=== PATIENT | female | born 1975 | race Caucasian/White ===

== ENCOUNTER 2017-05-16 17:04 | Inpatient (IN) | payer BC ==
--- NOTE | 2017-05-16 17:32 | PDOC ---
Rapid Medical Evaluation Time Seen by Provider: 05/16/17 17:28 Medical Evaluation: 05/16/17 17:29 Pt with c/o: ruptured left ovarian a few weeks ago now with possible abscess . Sent by Olga for preop clearance Pt on brief exam: vss, Pt ordered for: preop labs collected # 18 gauge to lt ac Pt to proceed to the ED 05/16/17 17:44 Discharge Disposition - Diagnosis Ovarian abscess - Referrals - Patient Instructions - Post Discharge Activity
[2017-05-16 17:33] VITALS: BMI 21.1
[2017-05-16 18:05] LABS: BASO % 2.2 % (0-2.0); EOS % 2.1 % (0-4.5); HEMATOCRIT 39.4 % (32.4-45.2); HEMOGLOBIN 13.2 GM/dL (10.7-15.3); LYMPH % 27.8 % (8-40); MCH 31.9 pg (25.7-33.7); MCHC 33.6 g/dl (32.0-36.0); MEAN CELL VOLUME 94.9 fl (80-96); MEAN PLT VOLUME 7.7 fl (7.5-11.1); MONO % 4.1 % (3.8-10.2); NEUT % 63.8 % (42.8-82.8); PLATELET COUNT 363 K/MM3 (134-434); RBC 4.15 M/mm3 (3.60-5.2); WHITE BLOOD COUNT 8.4 K/mm3 (4.0-10.0)
--- NOTE | 2017-05-16 18:06 | PDOC ---
History of Present Illness - General Chief Complaint: Pain, Acute Stated Complaint: PAIN Time Seen by Provider: 05/16/17 17:28 History Source: Patient Exam Limitations: No Limitations - History of Present Illness Initial Comments: CHIEF COMPLAINT: 41 y/o female here for laparoscopy by Dr. Ocampo at 7pm. HISTORY OF PRESENT ILLNESS: The patient had a ruptured ovarian cyst 2 weeks ago which has been monitored. There is still blood in her abdomen and Dr. Ocampo sent her to the ER for pre-op labs for a laparoscopy tonight. The patient denies f/c, n/v/d, CP, SOB, back pain. Vital signs on arrival are within normal limits. REVIEW OF SYSTEMS: GENERAL/CONSTITUTIONAL: No fever/chills. No weakness. No weight change. HEAD, EYES, EARS, NOSE AND THROAT: No change in vision. No ear pain or discharge. No sore throat. CARDIOVASCULAR: No chest pain or shortness of breath. RESPIRATORY: No cough, wheezing, or hemoptysis. GASTROINTESTINAL: +abdominal pain and heavy vaginal bleeding. GENITOURINARY: No dysuria, frequency, or change in urination. MUSCULOSKELETAL: No joint or muscle swelling or pain. No neck or back pain. SKIN: No rash or easy bruising. NEUROLOGIC: No headache, vertigo, loss of consciousness, or loss of sensation. PHYSICAL EXAM: GENERAL: The patient is awake, alert, and fully oriented, in no acute distress. HEAD: Normal with no signs of trauma. EYES: Pupils equal, round and reactive to light, extraocular movements intact, sclera anicteric, conjunctiva clear. EXTREMITIES: Normal range of motion, no edema. NEUROLOGICAL: Normal speech, normal gait. SKIN: Warm, Dry, normal turgor, no rashes or lesions noted. Past History - Past Medical History Allergies/Adverse Reactions: Allergies Allergy/AdvReac Type Severity Reaction Status Date / Time No Known Allergies Allergy Verified 05/16/17 17:29 COPD: No DVT: No - Immunization History Immunization Up to Date: Yes - Suicide/Smoking/Psychosocial Hx Smoking History: Never smoked Information on smoking cessation initiated: No Hx Alcohol Use: No Drug/Substance Use Hx: No Substance Use Type: None *Physical Exam - Vital Signs Last Vital Signs Temp Pulse Resp BP Pulse Ox 98.7 F 78 17 141/71 100 05/16/17 17:30 05/16/17 17:30 05/16/17 17:30 05/16/17 17:30 05/16/17 17:30 ED Treatment Course - LABORATORY CBC & Chemistry Diagram: 05/16/17 17:43 Medical Decision Making - Medical Decision Making A/P: 41 y/o female in the ER for pre-op labs to be sent for laparoscopy at 7pm. Labs drawn in RME. Patient admitted to Dr. Ocampo. *DC/Admit/Observation/Transfer Diagnosis at time of Disposition: Ovarian abscess - Discharge Dispostion Condition at time of disposition: Stable Admit: Yes - Referrals - Patient Instructions - Post Discharge Activity
[2017-05-16 18:17] LABS: INR 1.04 (0.82-1.09); PROTHROMBIN TIME (PATIENT) 11.7 SEC (9.98-11.88)
[2017-05-16 18:37] LABS: URINE APPEARANCE SLCLOUDY; URINE BILIRUBIN NEGATIVE (NEGATIVE); URINE BLOOD NEGATIVE (NEGATIVE); URINE COLOR YELLOW; URINE GLUCOSE (UA) NEGATIVE (NEGATIVE); URINE KETONE TRACE (NEGATIVE); URINE LEUK ESTERASE NEGATIVE (NEGATIVE); URINE NITRITE NEGATIVE (NEGATIVE); URINE PROTEIN NEGATIVE (NEGATIVE); URINE UROBILINOGEN NEGATIVE mg/dL (0.2-1.0)
[2017-05-16] MEDS ORDERED: MIDAZOLAM HCL 2 MG/2 ML SINGLE DOSE VIAL ONE (19:17)
[2017-05-16] MEDS ORDERED: PROPOFOL 20 ML ONE ×2 (19:17→20:29)
[2017-05-16] MEDS ORDERED: ROCURONIUM BROMIDE 50 MG/5 ML VIAL ONE (19:17)
[2017-05-16] MEDS ORDERED: ceFAZolin SODIUM 1 GM VIAL IVPB ONE (19:48)
[2017-05-16] MEDS ORDERED: ceFAZolin SODIUM 1 GM VIAL ONE (20:37)
[2017-05-16] MEDS ORDERED: DEXAMETHASONE SOD PHOSPHATE 4 MG/1 ML VIAL ONE (20:37)
[2017-05-16] MEDS ORDERED: GLYCOPYRROLATE 0.2 MG/1 ML VIAL ONE (20:37)
[2017-05-16] MEDS ORDERED: ONDANSETRON 4 MG/2 ML VIAL ONE ×2 (20:37)
[2017-05-16] MEDS ORDERED: NEOSTIGMINE METHYLSULFATE 0.5 MG/ML - 10 ML MDV ONE (20:38)
[2017-05-16] MEDS ORDERED: BUPIVACAINE HCL/PF 0.5% (5MG/ML) 10 ML VIAL IJ ONE (20:45)
[2017-05-16] MEDS ORDERED: BUPIVACAINE HCL/PF 0.5% (5MG/ML) 10 ML VIAL ONE (20:48)
[2017-05-16] MEDS ORDERED: LACTATED RINGERS SOLUTION 1,000 ML IV SCH ×2 (21:15→21:30)
[2017-05-16] MEDS: HYDROmorphone HCL CARPU-JECT 2 MG/1 ML DISP.SYRIN ONE ×2 (21:15→21:30)
[2017-05-16] MEDS ORDERED: IBUPROFEN 800 MG/8 ML IJ IVPB PRN (21:15)
--- NOTE | 2017-05-16 21:15 | HP ---
History & Physical Update - History History: No Change - Physical Physical: No Change - Assessment Assessment: No Change - Plan Plan: No Change
[2017-05-16] MEDS ORDERED: ACETAMINOPHEN INJECTION 100 ML IVPB ONE (21:16)
[2017-05-16] MEDS: ACETAMINOPHEN 1000 MG/100 ML VIAL (NON FORMULARY) IVPB ONE (21:20)
[2017-05-16] MEDS ORDERED: PROMETHAZINE HCL 25 MG/1 ML VIAL IVPB PRN (21:23)
[2017-05-16] MEDS ORDERED: ONDANSETRON 4 MG/2 ML VIAL IVPUSH PRN (21:23)
[2017-05-16] MEDS ORDERED: HYDROmorphone HCL CARPU-JECT 2 MG/1 ML DISP.SYRIN IVPUSH PRN (21:23)
--- NOTE | 2017-05-16 21:23 | OP ---
Operative Note - Note: Operative Date: 05/16/17 Pre-Operative Diagnosis: Pelvic Pain. Culde Sac mass. Hemoperitoneum. Ovarian cyst Operation: Laparoscopic culdesac mass removal. bilateral laparoscopic salpingectomy. left paraovarian cystectomy Findings: 8-9 cm culde sac mass removed paraovarian cyst removed fallopian tubes normal Post-Operative Diagnosis: Same as Pre-op Surgeon: Katja Ocampo Manager Export: Kari Jaramillo Anesthesia: General Estimated Blood Loss (mls): 10 Operative Report Dictated: Yes
[2017-05-16] MEDS ORDERED: LACTATED RINGERS SOLUTION 1,000 ML/1,000 ML INFUS.BAG IV SCH (21:30)
[2017-05-16] MEDS ORDERED: oxyCODONE HCL 5 MG TABLET PO PRN (21:34)
[2017-05-16] MEDS ORDERED: ACETAMINOPHEN 325 MG TABLET (FP) PO PRN (21:34)
[2017-05-17] MEDS: ACETAMINOPHEN 1000 MG/100 ML VIAL (NON FORMULARY) IVPB ONE (01:29)
--- NOTE | 2017-05-17 07:07 | OP ---
DATE OF OPERATION: 05/16/2017 PREOPERATIVE DIAGNOSES: Pelvic pain, cul-de-sac mass and ovarian cyst and dyspareunia. OPERATION: Laparoscopic bilateral salpingectomy, laparoscopic cul-de-sac mass removal and ovarian cystectomy. SURGEON: Katja Ocampo MD STORM SASH MAKER: Kari Jaramillo MD. ANESTHESIOLOGIST: . ANESTHESIA: General. FINDINGS: Large 8- to 9-cm cul-de-sac mass seen. The mass was firmly applied to the cul-de-sac. Tubes were normal and left ovary ovarian cyst. PROCEDURE: Patient was taken to the operating room, placed in the dorsal lithotomy position, prepped and draped in the usual sterile fashion. Timeout was performed in accordance with the hospital regulation. Todd catheter was inserted into the bladder. Attention was then drawn to the umbilicus where a 5-mm umbilical incision was made. Veress needle was inserted into the cavity. Approximately 3 to 4 L of CO2 was insufflated into the cavity. Veress needle was then removed and a 5-mm trocar was inserted. Laparoscope and camera attached. Visualization revealed about a 9-cm cul-de-sac mass which was firmly affixed to the cul-de-sac, also left paraovarian cyst and ovarian cyst which appeared to possibly have ruptured from the left ovary. Tubes were normal. Two lower 5-mm incisions were made with the scalpel on the left and the right side. Trocars were inserted under direct visualization. Grasper and LigaSure were then attached. The left tube fimbriated end was grasped and coagulation and cutting of the fimbriated end. Proximal end of the tube was grasped and LigaSure was then used to coagulate and cut the proximal end of the tube. Same procedure was repeated on the right side. A paraovarian cyst was then removed. The left ovary was noted to have a possible ruptured cyst and a large amount of clotting and tissue were firmly affixed to the cul-de-sac. Large amounts of blood and possibly cyst wall were removed from the cul-de-sac. An 11-mm trocar was placed on the left side and EndoCatch was then inserted. A large amount of tissue and clots were removed from the cul-de-sac. Some tissue had to be left behind due to firmly affixed to the cul-de-sac. The left ovary was noted to be normal. Liver was noted to be normal. No blood was seen by the liver. Upon entry, there was blood in the cul-de-sac as well as anterior to the bladder. Lots of irrigation and suctioning were done and most of the material was removed from the cul-de-sac. There was still material left again that was firmly affixed. After hemostasis had been established, CO2 was removed from the abdomen. All instruments then removed. Incisions were then closed using 4-0 Biosyn suture in subcuticular fashion. Wound was washed and dressed. Steri-Strips placed. Band-Aids were placed on the incision. Todd catheter was then removed. Patient tolerated procedure well. Estimated blood loss was 10 mL. KATJA OCAMPO M.D. [id number]
--- NOTE | 2017-05-17 08:11 | EKG ---
Test Reason : Blood Pressure : / mmHG Vent. Rate : 078 BPM Atrial Rate : 078 BPM P-R Int : 146 ms QRS Dur : 092 ms QT Int : 350 ms P-R-T Axes : 063 020 042 degrees QTc Int : 399 ms NORMAL SINUS RHYTHM NORMAL ECG NO PREVIOUS ECGS AVAILABLE Confirmed by KELLEE MANCUSO, TIMUR ([id number]) on 05/17/2017 8:11:19 AM Referred By: Confirmed By:TIMUR GOODSON MD
[2017-05-17 11:16] VITALS: BP 120/64; PULSE 77; TEMP 98.7
--- NOTE | 2017-05-22 14:44 | PATH ---
Surgical Pathology Report Patient Name: RAY BEAVERS [facility]. Rec. #: [id number] /Age/Gender: 1975 (Age: 41) / F Account: [id number] Location: [facility] OBS/GENERAL STUDIES PROGRAM CHAIR Taken: 05/16/2017 Received: 05/17/2017 Reported: 05/22/2017 Physicians: Katja Ocampo M.D. Specimen(s) Received CUL DE SAC, PELVIC MASS AND FALLOPIAN TUBE Clinical History Ovarian cyst Final Diagnosis CUL-DE-SAC MASS WITH FALLOPIAN TUBES, EXCISION: FIMBRIATED PORTIONS OF BENIGN BILATERAL FALLOPIAN TUBES, AND BENIGN HEMORRHAGIC CYSTIC MASS. NO CARCINOMA IDENTIFIED. Comment: Recommend correlation with clinical findings and follow up as clinically indicated. Electronically Signed Silvino Warner M.D. Gross Description Received in formalin labeled "cul-de-sac mass and pelvic mass and fallopian tubes," is a 9.0 x 8.0 x 2.0 cm aggregate of sandoval brown, hemorrhagic soft tissue fragments admixed with blood clot. There are 2 fimbriated fallopian tubes identified measuring 1.5 and 3.5 cm in length. The longer fallopian tube displays focal paratubal cysts, measuring up to 1.0 cm in greatest dimension. The cut surface of the fallopian tubes reveals unremarkable lumen. Sectioning of the remaining soft tissue reveals hemorrhagic, necrotic fragments. Latex Foam Worker sections are submitted in 8 cassettes as follows: 1-shorter fallopian tube fimbria; 2-cross sections of shorter fallopian tube; 3-longer fallopian tube fimbria; 4-cross sections of longer fallopian tube; 4-9-bhttlfsglybrkp hemorrhagic fragments. /05/17/2017 saudi05/17/2017
== END 2017-05-17 08:45 | disposition home or self-care (01) | DRG 742 ==
LOC: JER 17:04 → JERBED 18:06 → J3W 22:29
PROVIDERS: ADMIT Obstetrics & Gynecology; ATTEND Obstetrics & Gynecology
PROC: 0UB14ZZ Excision of Left Ovary, Percutaneous Endoscopic Approach (ICD-10-PCS; 2017-05-16)
PROC: 0UB94ZX Excision of Uterus, Percutaneous Endoscopic Approach, Diagnostic (ICD-10-PCS; 2017-05-16)
PROC: 0UT74ZZ Resection of Bilateral Fallopian Tubes, Percutaneous Endoscopic Approach (ICD-10-PCS; principal; 2017-05-16 20:00)
DX: N83.202 Unspecified ovarian cyst, left side (principal); K66.1 Hemoperitoneum; N85.8 Other specified noninflammatory disorders of uterus
CPT/HCPCS: 36415; 81003; 84703; 85025; 85610; 86850; 86900; 86901; 88305-TC; 93005; 93010; 94760; 99284-25

== ENCOUNTER 2019-01-03 07:32 | Emergency (ER) | payer BC, OTHER ==
[2019-01-03 07:46] VITALS: BP 110/73; PULSE 73; TEMP 98.2; BMI 21.1
[2019-01-03 08:49] LABS: BASO % 1.3 % (0-2.0); EOS % 4.1 % (0-4.5); HEMATOCRIT 38.7 % (32.4-45.2); HEMOGLOBIN 13.5 GM/dL (10.7-15.3); LYMPH % 30.8 % (8-40); MCH 33.1 pg (25.7-33.7); MEAN CELL VOLUME 94.7 fl (80-96); MEAN PLT VOLUME 7.5 fl (7.5-11.1); MONO % 5.7 % (3.8-10.2); NEUT % 58.1 % (42.8-82.8); PLATELET COUNT 322 K/MM3 (134-434); RBC 4.09 M/mm3 (3.60-5.2); RDW 12.5 % (11.6-15.6); WHITE BLOOD COUNT 5.1 K/mm3 (4.0-10.0)
--- NOTE | 2019-01-03 09:07 | PDOC ---
History of Present Illness - General Chief Complaint: Pain Stated Complaint: ABDOMINAL PAIN Time Seen by Provider: 01/03/19 07:57 History Source: Patient Exam Limitations: No Limitations Past History - Past Medical History Allergies/Adverse Reactions: Allergies Allergy/AdvReac Type Severity Reaction Status Date / Time No Known Allergies Allergy Verified 01/03/19 07:42 Home Medications: Ambulatory Orders Oxycodone HCl/Acetaminophen [Percocet 5-325 mg Tablet] 1 - 2 tab PO Q6H #20 tab MDD 6 05/17/17 COPD: No DVT: No Psychiatric Problems: Yes (ADHD) - Immunization History Immunization Up to Date: Yes - Suicide/Smoking/Psychosocial Hx Smoking History: Never smoked Information on smoking cessation initiated: No Hx Alcohol Use: No Drug/Substance Use Hx: No Substance Use Type: None *Physical Exam - Vital Signs Last Vital Signs Temp Pulse Resp BP Pulse Ox 98.2 F 73 16 110/73 100 01/03/19 07:42 01/03/19 07:42 01/03/19 07:42 01/03/19 07:42 01/03/19 07:42 - Physical Exam General Appearance: No: Apparent Distress Respiratory/Chest: positive: Lungs Clear, Normal Breath Sounds. negative: Respiratory Distress Cardiovascular: positive: Regular Rhythm, Regular Rate, S1, S2. negative: Murmur Female Pelvic Exam: positive: adnexal tenderness (along R side) Gastrointestinal/Abdominal: positive: Tender (RLQ), Soft. negative: Distended, Guarding, Rebound Neurologic: positive: Alert, Normal Mood/Affect ED Treatment Course - LABORATORY CBC & Chemistry Diagram: 01/03/19 08:33 01/03/19 08:33 - ADDITIONAL ORDERS Additional order review: Laboratory Results 01/03/19 08:30 Urine HCG, Qual Negative 01/03/19 08:33 RBC 4.09 MCV 94.7 MCHC 35.0 RDW 12.5 MPV 7.5 Neutrophils % 58.1 Lymphocytes % 30.8 Monocytes % 5.7 Eosinophils % 4.1 D Basophils % 1.3 Medical Decision Making - Medical Decision Making 43 y/o F hx of B/L salpingectomy and L paraovarian cystectomy 05/16/17 was sent to ED by her wine consultant, Dr. Ocampo, to take to possible OR for R ovarian hemorrhagic cyst discovered on US last week (3.5 x 4 cm in size). Patient mentions having RLQ pain x 2.5 weeks. Denies fever, sob, cp, n/v/d, urinary complaints. D/W Dr. Ocampo - would like repeat US done today Plan: labs, type and screen, repeat TVUS Patient refused pain meds currently 01/03/19 09:06 Labs unremarkable Pelvic US shows R ovarian cyst, now smaller in size - 3.2 x 2.5 cm As d/w Dr. Ocampo, patient no longer needs to go to OR and can be discharged Patient appears comfortable stable for dc 01/03/19 10:31 *DC/Admit/Observation/Transfer Diagnosis at time of Disposition: Right ovarian cyst - Discharge Dispostion Disposition: HOME Condition at time of disposition: Stable Decision to Admit order: No - Referrals Referrals: Katja Ocampo MD [Staff Physician] - 2 Days - Patient Instructions Printed Discharge Instructions: DI for Ovarian Cyst Additional Instructions: Thank you for choosing [facility]. It was a pleasure taking care of you. Your ultrasound shows that your right ovarian cyst has now decreased in size Please continue follow-up with your [facility] as scheduled Return to the Emergency Department if your symptoms worsen or persist, you have fever, severe abdominal pain, vomiting or other concerning symptoms. - Post Discharge Activity
[2019-01-03 09:18] LABS: ALBUMIN 3.9 g/dl (3.4-5.0); BILIRUBIN,TOTAL 0.7 mg/dL (0.2-1); BLOOD UREA NITROGEN 9.1 mg/dL (7-18); CALCIUM 9.6 mg/dL (8.5-10.1); CREATININE 0.9 mg/dL (0.55-1.3); POTASSIUM 4.5 mmol/L (3.5-5.1); TOT PROT 7.2 g/dl (6.4-8.2)
[2019-01-03 09:20] LABS: INR 0.98 (0.83-1.09); PROTHROMBIN TIME (PATIENT) 11.6 SEC (9.7-13.0)
[2019-01-03 09:22] LABS: PH,URINE 8.5 (5.0-8.0); URINE APPEARANCE CLEAR; URINE BILIRUBIN NEGATIVE (NEGATIVE); URINE COLOR YELLOW; URINE GLUCOSE (UA) NEGATIVE (NEGATIVE); URINE KETONE NEGATIVE (NEGATIVE); URINE LEUK ESTERASE NEGATIVE (NEGATIVE); URINE NITRITE NEGATIVE (NEGATIVE); URINE PROTEIN NEGATIVE (NEGATIVE)
[2019-01-03 09:23] LABS: ACTIVATED PTT 33.7 SECONDS (25.2-36.5)
--- NOTE | 2019-01-03 14:04 | EKG ---
Test Reason : Blood Pressure : / mmHG Vent. Rate : 054 BPM Atrial Rate : 054 BPM P-R Int : 144 ms QRS Dur : 090 ms QT Int : 414 ms P-R-T Axes : 052 026 024 degrees QTc Int : 392 ms SINUS BRADYCARDIA OTHERWISE NORMAL ECG WHEN COMPARED WITH ECG OF 16-MAY-2017 17:37, NO SIGNIFICANT CHANGE WAS FOUND Confirmed by KEVIN COLINDRES MD ([id number]) on 01/03/2019 2:03:43 PM Referred By: Confirmed By:KEVIN COLINDRES MD
== END 2019-01-03 10:40 | disposition home or self-care (01) ==
LOC: JER 07:32
DX: N83.201 Unspecified ovarian cyst, right side (principal)
CPT/HCPCS: 36415; 76830-TC; 80053; 81003; 84703; 85025; 85610; 85730; 86850; 86900; 86901; 93005; 93010; 99282-25